=== PATIENT | female | born 1985 | race Caucasian/White ===

== ENCOUNTER 2019-09-11 06:52 | Emergency (ER) | payer MEDICAID ==
[~2019-09-11] VITALS: Ht 177.8 cm; Wt 83.9 kg
[2019-09-11 06:56] VITALS: BP 120/66
--- NOTE | 2019-09-11 07:00 | NUR ---
ED Nurse Note: patient walked into ED from home due to shobha removal from the right knee. patient reports she got shobha placed on 08/28/19 at [facility]. patient reports 5/10 pain. redness and warmth noted.
[2019-09-11] MEDS ORDERED: AUGMENTIN 875-1 EAC1 ORAL (07:14)
[2019-09-11] MEDS ORDERED: Augmentin 875mg Tab ORAL ONE (07:15)
[2019-09-11] MEDS ORDERED: Bacitracin Oint UD TOPIC ONE (07:19)
[2019-09-11 07:30] VITALS: BP 120/66
--- NOTE | 2019-09-11 07:30 | NUR ---
ER DISCHARGE NOTE: Patient is cleared to be discharged per ERMD DR Armstrong, pt is aox4, on room air, with stable vital signs. pt was given dc and prescription instructions, pt was able to verbalize understanding, pt id band removed without complications. dressings applied as ordered by Dr. reed by [facility]. pt is able to ambulate with steady gait. pt took all belongings.
--- NOTE | 2019-09-11 08:45 | Emergency Room Report ---
History of Present Illness General Chief Complaint: Wound Recheck/Suture Removal Source: Patient Present Illness HPI 34-year-old female presents for wound check. States that she had shobha placed in her right knee and a skin graft on her left leg done at [facility] on August 27. Is here for staple removal. Will not specify what her injury was. States she has not been having a dressing on her knee for last week. Denies pain. Denies any fevers or chills. Denies any drainage. No other aggravating relieving factors. Denies any other associated symptoms Allergies: Coded Allergies: No Known Allergies (Unverified , 09/11/19) COVID-19 Screening Contact w/high risk pt: No Recent Travel to affected area: No Experienced COVID-19 symptoms?: No COVID-19 Testing performed ENGINE HOSTLER: No Patient History Past Medical History: DM Past Surgical History: none Pertinent Family History: none Social History: Denies: smoking, alcohol use, drug use Last Menstrual Period: 2014 Now: No Immunizations: UTD Reviewed Nursing Documentation: PMH: Agreed; PSxH: Agreed Nursing Documentation-PMH Hx Diabetes: Yes Review of Systems All Other Systems: negative except mentioned in HPI Physical Exam Vital Signs Date Time Temp Pulse Resp B/P (MAP) Pulse Ox O2 Delivery O2 Flow Rate FiO2 09/11/19 06:56 98.2 90 16 120/66 97 Room Air Sp02 EP Interpretation: reviewed, normal General Appearance: no apparent distress, alert, GCS 15, non-toxic Head: normocephalic, atraumatic Eyes: bilateral eye normal inspection, bilateral eye PERRL ENT: hearing grossly normal, normal pharynx, no angioedema, normal voice Neck: full range of motion, supple/symm/no masses Respiratory: chest non-tender, lungs clear, normal breath sounds, speaking full sentences Cardiovascular #1: regular rate, rhythm, no edema Cardiovascular #2: 2+ carotid (R), 2+ carotid (L), 2+ radial (R), 2+ radial (L) , 2+ dorsalis pedis (R), 2+ dorsalis pedis (L) Gastrointestinal: normal bowel sounds, non tender, soft, non-distended, no guarding, no rebound Rectal: deferred Genitourinary: normal inspection, no CVA tenderness Musculoskeletal: back normal, normal range of motion, gait/station normal, non- tender Neurologic: alert, motor strength/tone normal, oriented x3, sensory intact, responsive, speech normal Psychiatric: judgement/insight normal, memory normal, mood/affect normal, no suicidal/homicidal ideation Reflexes: 3+ bicep (R), 3+ bicep (L), 3+ tricep (R), 3+ tricep (L), 3+ knee (R) , 3+ knee (L) Skin: other - wound R knee. granulation tissue noted. shobha in circumferential fashion. surrounding erythema/induration Lymphatic: no adenopathy Medical Decision Making Diagnostic Impression: Primary Impression: Encounter for wound re-check ER Course Hospital Course 34-year-old F presents to ED for wound check. Clinical course Patient placed on stretcher. After initial history physical exam reveals female in no acute distress. On exam there is a healing wound to the right knee. Granulation tissue noted. There is shobha placed in a circumferential fashion. The wound does not appear fully healed at this time. There is also some surrounding erythema and induration. There is full range of motion to the knee. Vital stable. No fevers or chills. I discussed findings with patient. I do not believe shobha are ready to remove at this time. Wound is cleaned. Wet-to -dry dressing applied. Given Augmentin. I recommend follow-up with the provider who placed the shobha. Patient agrees with plan Diagnosis - encounter for wound re-check Stable and discharged to home with Rx Augmetnin. Followup with PMD. Return to ED if any signs of infection develop Last Vital Signs Date Time Temp Pulse Resp B/P (MAP) Pulse Ox O2 Delivery O2 Flow Rate FiO2 09/11/19 07:30 98.2 90 16 120/66 97 Room Air Status: improved Disposition: HOME, SELF-CARE Condition: Stable Scripts Amoxicillin/Potassium Clav 875-125* (AUGMENTIN 875-125 TABLET*) 1 Each Tablet 1 TAB ORAL TWICE A DAY, #14 TAB Prov: Jude Armstrong MD 09/11/19 Referrals: NOT CHOSEN IPA/,REFERRING (PCP) [facility] Patient Instructions: Wound Check Jude Armstrong MD September 11, 2019 08:45
== END 2019-09-11 07:30 | disposition home or self-care (01) ==
LOC: EMR 07:13
DX: S81.001A Unspecified open wound, right knee, initial encounter (principal); X58.XXXA Exposure to other specified factors, initial encounter; Y92.9 Unspecified place or not applicable; E11.9 Type 2 diabetes mellitus without complications
CPT/HCPCS: 99282